=== PATIENT | female | born 1985 | race Caucasian/White ===

== ENCOUNTER 2017-04-10 03:47 | Emergency (ER) | payer SELFPAY ==
[~2017-04-10] VITALS: Ht 160 cm; Wt 54.4 kg
[2017-04-10 04:43] LABS: BASOPHIL % 0.3 % (0-2); PLATELET COUNT 309 x10^3mcL (130-400)
[2017-04-10 04:44] LABS: RED CELL DISTRIBUTION WIDTH 15.2 % (11.5-14.5)
[2017-04-10 05:06] LABS: ALBUMIN 3.7 g/dL (3.4-5.0); ALKALINE PHOSPHATASE 72 U/L (46-116); ALT/SGPT 11 U/L (14-59); AMYLASE 66 U/L (25-115); AST/SGOT 24 U/L (15-37); BILIRUBIN TOTAL 0.39 mg/dL (0.20-1.00); CALCIUM 8.5 mg/dL (8.5-10.1); CARBON DIOXIDE 23.1 mmol/L (21-32); CHLORIDE SERUM 107 mmol/L (98-107); CREATININE SERUM 0.7 mg/dL (0.6-1.0); GFR1 > 60 mL/min; GLUCOSE SERUM 105 mg/dL (74-106); LIPASE 63 IU/L (73-393); POTASSIUM SERUM 3.7 mmol/L (3.5-5.1); SODIUM SERUM 140 mmol/L (136-145); TOTAL PROTEIN, SERUM 7.8 g/dL (6.4-8.2)
[2017-04-10 06:23] VITALS: BP 117/75
== END 2017-04-10 06:23 | disposition home or self-care (01) ==
LOC: ED 03:47
PROVIDERS: Emergency Medicine
DX: F10.129 Alcohol abuse with intoxication, unspecified (principal); F41.9 Anxiety disorder, unspecified
CPT/HCPCS: G0480; J2405; J7030

== ENCOUNTER 2017-04-11 03:25 | Emergency (ER) | payer SELFPAY ==
[2017-04-11 04:16] LABS: BASOPHIL % 0.5 % (0-2); PLATELET COUNT 301 x10^3mcL (130-400)
[2017-04-11 04:25] LABS: CALCIUM 8.6 mg/dL (8.5-10.1); CARBON DIOXIDE 24.3 mmol/L (21-32); CHLORIDE SERUM 103 mmol/L (98-107); CREATININE SERUM 0.7 mg/dL (0.6-1.0); GFR1 > 60 mL/min; GLUCOSE SERUM 142 mg/dL (74-106); POTASSIUM SERUM 3.7 mmol/L (3.5-5.1); SODIUM SERUM 139 mmol/L (136-145)
[2017-04-11 04:27] LABS: RED CELL DISTRIBUTION WIDTH 15.5 % (11.5-14.5)
[2017-04-11 04:29] LABS: ALBUMIN 3.6 g/dL (3.4-5.0); ALKALINE PHOSPHATASE 72 U/L (46-116); ALT/SGPT 19 U/L (14-59); AMYLASE 55 U/L (25-115); AST/SGOT 23 U/L (15-37); BILIRUBIN TOTAL 0.5 mg/dL (0.20-1.00); LIPASE 72 IU/L (73-393); TOTAL PROTEIN, SERUM 7.7 g/dL (6.4-8.2)
[2017-04-11 05:06] VITALS: BP 110/68
== END 2017-04-11 05:00 | disposition home or self-care (01) ==
LOC: ED 03:25
PROVIDERS: Emergency Medicine
DX: R10.13 Epigastric pain (principal); F10.129 Alcohol abuse with intoxication, unspecified
CPT/HCPCS: 36415; G0480; Q0092; Q0162